=== PATIENT | male | born 1945 | race Caucasian/White ===

== ENCOUNTER → 2018-09-23 | Outpatient (CLI) | payer OTHER | END | disposition home or self-care (01) | LOC: LAB 15:00 | PROVIDERS: ATTEND Physician Assistant | DX: L82.1 Other seborrheic keratosis (principal) ==

== ENCOUNTER → 2018-12-16 | Outpatient (CLI) | payer OTHER ==
[2018-12-16 08:10] LABS: Basophils # (auto) 0.1 uL; Basophils % (auto) 0.9 % (0.0-2.0); Eosinophils # (auto) 0.1 uL; Eosinophils % (auto) 2.1 % (0.0-7.0); Hematocrit 45.4 % (41.0-53.0); Hemoglobin 15.5 g/dL (13.5-17.5); Lymphocytes # (auto) 1.5 uL; Lymphocytes % (auto) 24.3 % (10.0-50.0); Mean Corpuscular Hgb Conc. 34.1 g/dL (32.0-36.0); Mean Corpuscular Volume 90.9 fL (80.0-100.0); Monocytes # (auto) 0.6 uL; Monocytes % (auto) 9.8 % (0.0-12.0); Neutrophils # (auto) 3.8 uL; Neutrophils % (auto) 62.9 % (37.0-80.0); Nucleated Red Blood Cells % 0.1 %; Platelet Count (auto) 143 10^3/uL (140-450); Red Cell Distribution Width 13.6 % (11.8-14.3)
[2018-12-16 08:52] LABS: Albumin 3.7 g/dL (3.4-5.0); Calcium 9.2 mg/dL (8.5-10.1); Potassium 4.2 mmol/L (3.5-5.1)
[2018-12-16 08:56] LABS: BUN/Creatinine Ratio 11.1; Bilirubin, Total 0.5 mg/dL (0.2-1.0)
[2018-12-16 14:55] LABS: Free T4 (Free Thyroxine) 0.87 ng/dL (0.89-1.76)
== END | disposition home or self-care (01) ==
LOC: LAB 07:13
PROVIDERS: ATTEND Internal Medicine
DX: D69.6 Thrombocytopenia, unspecified (principal); R29.6 Repeated falls
CPT/HCPCS: 36415; 80053; 82607; 83615; 84207; 84425; 84439; 84443; 85025

== ENCOUNTER → 2019-01-15 | Outpatient (CLI) | payer OTHER | END | disposition home or self-care (01) | LOC: LAB 09:17 | PROVIDERS: ATTEND Internal Medicine | DX: Z91.81 History of falling (principal) | CPT/HCPCS: 36415; 82565; 84520 ==

== ENCOUNTER → 2019-07-15 | Outpatient (CLI) | payer OTHER ==
[2019-07-15 08:00] LABS: Basophils # (auto) 0 uL; Basophils % (auto) 0.8 % (0.0-2.0); Eosinophils # (auto) 0.1 uL; Eosinophils % (auto) 1.4 % (0.0-7.0); Hematocrit 48.6 % (41.0-53.0); Hemoglobin 16.5 g/dL (13.5-17.5); Lymphocytes # (auto) 1.3 uL; Lymphocytes % (auto) 21.2 % (10.0-50.0); Mean Corpuscular Hemoglobin 31.3 pg (28.0-32.0); Mean Corpuscular Hgb Conc. 33.9 g/dL (32.0-36.0); Mean Corpuscular Volume 92.3 fL (80.0-100.0); Monocytes # (auto) 0.5 uL; Monocytes % (auto) 8.2 % (0.0-12.0); Neutrophils # (auto) 4.1 uL; Neutrophils % (auto) 68.4 % (37.0-80.0); Nucleated Red Blood Cells % 0.2 %; Platelet Count (auto) 115 10^3/uL (140-450); Red Blood Cells 5.26 10^6/uL (4.5-5.90); Red Cell Distribution Width 13.8 % (11.8-14.3)
[2019-07-15 08:05] LABS: Urine Bacteria NONE SEEN /hpf (None Seen); Urine Blood Negative /uL (Negative); Urine Specific Gravity 1.022 (1.001-1.035); Urine WBC 2 /hpf (0 - 3)
[2019-07-15 09:14] LABS: Potassium 3.9 mmol/L (3.5-5.1)
[2019-07-15 09:21] LABS: Free T4 (Free Thyroxine) 1.17 ng/dL (0.89-1.76); Prostate Specific Antigen 0.47 ng/mL (0.0-4.0)
[2019-07-15 09:24] LABS: Albumin 3.8 g/dL (3.4-5.0); BUN/Creatinine Ratio 22.1; Bilirubin, Total 0.6 mg/dL (0.2-1.0); Calcium 9.2 mg/dL (8.5-10.1); Total Protein 7.7 g/dL (6.4-8.2)
== END | disposition home or self-care (01) ==
LOC: LAB 07:34
PROVIDERS: ATTEND Internal Medicine
DX: R39.11 Hesitancy of micturition (principal); R27.0 Ataxia, unspecified; G91.2 (Idiopathic) normal pressure hydrocephalus
CPT/HCPCS: 36415; 80053; 80061; 81001; 82607; 84153; 84439; 84443; 85025; 85652

== ENCOUNTER 2019-07-20 09:34 | Inpatient (IN) | payer OTHER ==
[~2019-07-20] VITALS: Ht 175.3 cm; Wt 124.2 kg
[2019-07-20 11:26] LABS: Basophils # (auto) 0 uL; Basophils % (auto) 0.6 % (0.0-2.0); Eosinophils # (auto) 0.1 uL; Eosinophils % (auto) 0.9 % (0.0-7.0); Hematocrit 47.3 % (41.0-53.0); Hemoglobin 16.4 g/dL (13.5-17.5); Lymphocytes # (auto) 1.6 uL; Lymphocytes % (auto) 24.2 % (10.0-50.0); Mean Corpuscular Hemoglobin 31.7 pg (28.0-32.0); Mean Corpuscular Hgb Conc. 34.7 g/dL (32.0-36.0); Mean Corpuscular Volume 91.6 fL (80.0-100.0); Monocytes # (auto) 0.6 uL; Monocytes % (auto) 8.8 % (0.0-12.0); Neutrophils # (auto) 4.4 uL; Neutrophils % (auto) 65.5 % (37.0-80.0); Nucleated Red Blood Cells % 0.2 %; Platelet Count (auto) 125 10^3/uL (140-450); Red Blood Cells 5.16 10^6/uL (4.5-5.90); White Blood Cell 6.6 10^3/uL (4.4-10.8)
[2019-07-20 11:38] LABS: Albumin 3.9 g/dL (3.4-5.0); Anion Gap 4 (5-15); Blood Urea Nitrogen 14 mg/dL (7-18); Calcium 9.1 mg/dL (8.5-10.1); Carbon Dioxide 30 mmol/L (21-32); Chloride 106 mmol/L (98-107); Glucose 94 mg/dL (74-106); Potassium 4.2 mmol/L (3.5-5.1); Sodium 140 mmol/L (136-145)
[2019-07-20 11:43] LABS: Alanine Aminotransferase 38 U/L (16-61); Alkaline Phosphatase 58 U/L (45-117); Aspartate Aminotransferase 20 U/L (15-37); BUN/Creatinine Ratio 15.7; Bilirubin, Total 0.7 mg/dL (0.2-1.0); GFR African American 108 mL/min; GFR Non-African American 89 mL/min; INR 1.02 (0.9-1.15); Total Protein 7.8 g/dL (6.4-8.2)
[2019-07-20] MEDS ORDERED: NITROGLYCERIN 0.4 MG SL TAB SL PRN (14:45)
[2019-07-20] MEDS ORDERED: ONDANSETRON HCL 4 MG/2 ML VIAL IV PRN (14:45)
[2019-07-20] MEDS ORDERED: MORPHINE SULF INJ 2 MG/ML SYRINGE 1ML IV PRN (14:45)
[2019-07-20] MEDS ORDERED: DOCUSATE SOD 100 MG CAP PO PRN (14:45)
[2019-07-20 18:50] VITALS: BP 133/64
--- NOTE | 2019-07-20 18:50 | NUR ---
MS admit from ER TONY OLIVO admitted to tele/MS after SBAR received. Patient oriented to RADHA PADILLA, primary RN, unit, room, bed, and unit policies regarding patient care and visiting hours. Patient weighed by bedscale and encouraged to call if they need something. All questions and concerns addressed, patient verbalized understanding. Note:
--- NOTE | 2019-07-20 19:20 | NUR ---
Opening Shift Note Assumed care of patient, awake and alert x4. No S/S of distress/SOB or pain. Instructed on POC and to call for assistance PRN, will continue to monitor for changes Q1hr and PRN. Family at bedside
[2019-07-20] MEDS: IBUPROFEN 800 MG TAB PO PRN (19:42)
[2019-07-20 20:00] VITALS: BP 133/64
[2019-07-20 22:00] VITALS: BP 133/64
--- NOTE | 2019-07-21 01:58 | NUR ---
Rounds Patient sleeping, respirations even and unlabored on room air. No S/S of distress/SOB or pain. Will continue to monitor changes q1hr and PRN.
[2019-07-21] MEDS: MORPHINE SULF INJ 2 MG/ML SYRINGE 1ML IV PRN ×2 (03:21→21:14)
[2019-07-21 05:44] VITALS: BP 110/60
[2019-07-21] MEDS: IBUPROFEN 800 MG TAB PO PRN ×2 (07:05→22:27)
[2019-07-21 08:00] VITALS: BP 117/64
[2019-07-21 08:54] VITALS: BP 117/64
--- NOTE | 2019-07-21 09:50 | NUR ---
DR. GREER AT BEDSIDE. POC DISCUSSED WITH PT AND . PLAN FOR LUMBAR PUNCTURE LATER TODAY. PT VERBALIZED AGREEING WITH POC. LUMBAR PUNCTURE CONSENT WAS SIGNED BY TP. CONSENT PLACED IN CHART.
[2019-07-21] MEDS: FAMOTIDINE 20 MG TAB PO SCH (11:48)
[2019-07-21 12:43] VITALS: BP 136/62
[2019-07-21 16:27] VITALS: BP 133/71
--- NOTE | 2019-07-21 19:45 | NUR ---
Opening Shift Note Assumed care of patient, awake and alert. No S/S of distress/SOB or pain. Instructed on POC and to call for assistance PRN, will continue to monitor for changes Q1hr and PRN. Son at bedside, explained poc, pt to have lumbar puncture this evening, patient and son verbalized understanding and agreement with poc
[2019-07-21 20:00] VITALS: BP 150/81
--- NOTE | 2019-07-21 20:15 | NUR ---
Dr. Tran at bedside Pt ambulated 75ft in 16.5 seconds, gait brisk, steady with Dr. Tran
--- NOTE | 2019-07-21 20:30 | NUR ---
Lumbar Puncture Unsuccessful bedside lumbar puncture. Pt to go down tomorrow for lumbar puncture with radiology
[2019-07-22] VITALS (7 sets, daily range): BP systolic 114–141; BP diastolic 48–70
--- NOTE | 2019-07-22 01:02 | NUR ---
Rounds Patient sleeping, respirations even and unlabored. No S/S of distress/SOB on room air or pain. Will continue to monitor changes q1hr and PRN.
--- NOTE | 2019-07-22 06:10 | NUR ---
Opening Shift Note Assumed care of patient, awake and alert x4. No S/S of distress/SOB on room air, c/o generalized pain 6/10, medicated as ordered. Lumbar puncture dressing cdi. Instructed on POC and to call for assistance PRN, will continue to monitor for changes Q1hr and PRN.
[2019-07-22] MEDS: IBUPROFEN 800 MG TAB PO PRN ×2 (06:15→16:15)
--- NOTE | 2019-07-22 07:15 | NUR ---
Opening Shift Note Assumed care of patient, awake and alert. No S/S of distress/SOB or pain. Instructed on POC and to call for assist PRN, will continue to monitor for changes Q1hr and PRN. Bed is set in lowest locked position with side rails up x 2 for safety and call light is within reach.
[2019-07-22] MEDS: FAMOTIDINE 20 MG TAB PO SCH (09:32)
[2019-07-22] MEDS ORDERED: LIDOCAINE 2%HCL (LOCAL ANESTH.) INJ 20ML MDV ONE (09:35)
--- NOTE | 2019-07-22 10:02 | NUR ---
PATIENT IS OFF UNIT Taken down to radiology for procedure via gurney. No signs/symptoms of distress noted at time of departure.
[2019-07-22 13:34] LABS: Protein, CSF 61.8 mg/dL (15-45)
[2019-07-22] MEDS: MORPHINE SULF INJ 2 MG/ML SYRINGE 1ML IV PRN (13:35)
[2019-07-22 13:51] LABS: CSF White Blood Cells 0 CUMM (0-5)
[2019-07-22] MEDS ORDERED: MORPHINE SULF INJ 2 MG/ML SYRINGE 1ML IV PRN (18:15)
--- NOTE | 2019-07-22 19:30 | NUR ---
OPENING NOTE REPORT RECEIVED FROM DAY SHIFT RN PATIENT IS A/OX4 RESTING IN BED, NO S/S OF DISTRESS NOTED. FALL PRECAUTIONS ARE IN PLACE. INCISION SITE TO LUMBAR REGION C/D/I. POC DISCUSSED, ALL QUESTIONS ANSWERED. WILL MONITOR Q1H PRN THROUGHOUT SHIFT. CALL LIGHT WITHIN REACH.
[2019-07-23] MEDS: IBUPROFEN 800 MG TAB PO PRN (00:35)
[2019-07-23 05:00] VITALS: BP 117/47
--- NOTE | 2019-07-23 06:55 | NUR ---
CLOSING PATIENT IS SITTING UP IN BED. NO S/S OF DISTRESS. CALL LIGHT WITHIN REACH. WILL ENDORSE CARE TO DAYSHIFT RN.
--- NOTE | 2019-07-23 07:30 | NUR ---
Opening Shift Note Assuming care of patient at this time. Patient is awake and alert. Patient denies pain. Patient shows no signs or symptoms of distress or shortness of breath. Bed is locked and lowered with side rails up x2. Instructed patient on the plan of care for today and call for assistance as needed. Call light within reach.
[2019-07-23 09:25] VITALS: BP 130/59
[2019-07-23] MEDS: FAMOTIDINE 20 MG TAB PO SCH (10:00)
[2019-07-23 11:33] VITALS: BP 130/59
--- NOTE | 2019-07-23 13:15 | NUR ---
Discharge Discharge instructions given as ordered. Encourage to follow up with PMD as instructed. All questions and concerns addressed. Patient verbalized understanding. Medication reconciliation form completed and copy given to patient. IV removed with catheter intact, pressure dressing applied. Patient taken to vehicle via wheelchair with all personal belongings, accompanied by staff. No distress noted at time of departure.
--- NOTE | 2019-07-23 15:19 | NUR ---
assessment Patient has no post discharge needs identified. Addendum: 07/23/19 at 1520 by Brandi REED Amended: Links added.
== END 2019-07-23 13:15 | disposition home or self-care (01) | DRG 57 ==
LOC: ER 09:52 → OVERFLOW 09:53 → WEST WING 18:54
PROVIDERS: ADMIT Nurse Practitioner Acute Care; ATTEND Family Medicine
PROC: 009U3ZZ Drainage of Spinal Canal, Percutaneous Approach (ICD-10-PCS; principal; 2019-07-22)
PROC: B01B1ZZ Fluoroscopy of Spinal Cord using Low Osmolar Contrast (ICD-10-PCS; 2019-07-22)
DX: G91.2 (Idiopathic) normal pressure hydrocephalus (principal); G47.33 Obstructive sleep apnea (adult) (pediatric); E66.9 Obesity, unspecified; D69.6 Thrombocytopenia, unspecified; R26.9 Unspecified abnormalities of gait and mobility; M19.90 Unspecified osteoarthritis, unspecified site; I10 Essential (primary) hypertension; F17.200 Nicotine dependence, unspecified, uncomplicated; G89.29 Other chronic pain; M54.9 Dorsalgia, unspecified; Z90.49 Acquired absence of other specified parts of digestive tract; Z88.5 Allergy status to narcotic agent
CPT/HCPCS: 36415; 62272; 70450; 71045; 72100; 80053; 82945; 83880; 84157; 84484; 85025; 85610; 85730; 89051; G0378